=== PATIENT | male | born 1960 ===

== ENCOUNTER 2017-05-29 09:19 | Inpatient (IN) | payer OTHER ==
[2017-05-29 10:58] LABS: BASO % 0.7 % (0.0-2.0); EOS # 0.2 K/uL (0.0-0.7); EOS % 2.4 % (0.0-4.0); HEMOGLOBIN 12.1 g/dL (12.0-18.0); LYMPH # 0.7 K/uL (1.0-4.3); LYMPH % 11.1 % (20.0-40.0); MEAN CELL VOLUME 81.1 fL (80.0-94.0); MEAN CORPUSCULAR HEMOGLOBIN 26.7 pg (27.0-31.0); MONO # 0.4 K/uL (0.0-0.8); MONO % 6.8 % (0.0-10.0); NEUT # 5.1 K/uL (1.8-7.0); RBC 4.54 Mil/uL (4.40-5.90); RED CELL DISTRIBUTION WIDTH 18.3 % (11.5-14.5); WHITE BLOOD COUNT 6.4 K/uL (4.8-10.8)
[2017-05-29 11:24] LABS: ALB/GLOB RATIO 1.3 (1.0-2.1); ALBUMIN 4.5 g/dL (3.5-5.0); ALT/SGPT 42 U/L (21-72); AST/SGOT 78 U/L (17-59); BLOOD UREA NITROGEN 21 mg/dL (9-20); CALCIUM 9.7 mg/dl (8.6-10.4); GFR AFRICAN-AMERICAN > 60; GFR NON-AFRICAN AMERICAN > 60
[2017-05-29 11:37] LABS: SQUAMOUS EPITHIAL 4 /hpf (0-5); URINE BILIRUBIN NEGATIVE (NEGATIVE); URINE BLOOD NEGATIVE (NEGATIVE); URINE CLARITY Hazy (Clear); URINE COLOR Yellow (YELLOW); URINE GLUCOSE (UA) NORMAL (Normal); URINE LEUKOCYTE ESTERASE NEG Leu/uL (Negative); URINE NITRATE NEGATIVE (NEGATIVE); URINE PROTEIN 1+ mg/dL (NEGATIVE)
[2017-05-29 11:46] LABS: BARBITURATES, UR NEGATIVE (NEGATIVE); PHENCYCLIDINE, UR NEGATIVE (NEGATIVE)
[2017-05-29 12:13] LABS: BENZODIAZEPINES, UR POSITIVE (NEGATIVE); OPIATES, UR POSITIVE (NEGATIVE)
--- NOTE | 2017-05-29 12:43 | RAD ---
HISTORY: Detox/Psy COMPARISON: None available. TECHNIQUE: Chest, one view. FINDINGS: LUNGS: No focal consolidation. 7 mm left lower lobe nodular density. Please note that chest x-ray has limited sensitivity for the detection of pulmonary masses. PLEURA: No significant pleural effusion identified. No definite pneumothorax . CARDIOVASCULAR: Heart size appears top normal. OSSEOUS STRUCTURES: No acute osseous abnormality identified. VISUALIZED UPPER ABDOMEN: Unremarkable. OTHER FINDINGS: None. IMPRESSION: 7 mm left lower lobe nodular density. Recommend follow-up CT of the chest to exclude pulmonary nodule.
--- NOTE | 2017-05-29 14:18 | CP.PCM.HP ---
Addendum entered and electronically signed by Katelynn Moody 05/29/17 20:02 : Emergency Contact: Friend Mckinley Olson Original Note: <Katelynn Moody - Last Filed: 05/29/17 19:41> History of Present Illness - History of Present Illness History of Present Illness: CC: "I came to detox" HPI: 56 year old male with past medical history of Hepatitis C, HTN, Schizophrenia, alcohol abuse and heroine use. Patient states he came to the hospital to detox. He states his last use of heroin was 7AM today snorting as he does not have anymore veins to use it IV. He states his last drink was yesterday and he usually drinks about 1-2 pints of Bacardi and 10 cans of beer per day. He states if he does not drink he gets into fights with people and he has had seizures in the past due to withdrawal. He denies ever being intubated or hospitalized in the ICU. He states he is starting to feel shaky and have chills. He denies chest pain, palpitations, shortness of breath, diarrhea, constipation, nausea or vomiting. PMD: None Past Medical History: Hepatitis C, HTN, Schizophrenia Past Surgical History: denies Medications: Denies Allergies: NKDA Family History: denies Social History: Homeless; unemployed; Heroin 1 bundle IV previously 2 months ago and now currently snorts it; Alcohol 1-2 pints Bacardi per day and 10 cans of beer Present on Admission - Present on Admission Any Indicators Present on Admission: No Review of Systems - Constitutional Constitutional: Chills, Fever. absent: Headache - EENT Eyes: absent: Blurred Vision - Cardiovascular Cardiovascular: absent: Chest Pain, Dyspnea - Respiratory Respiratory: absent: Dyspnea - Gastrointestinal Gastrointestinal: absent: Constipation, Diarrhea, Nausea, Vomiting - Genitourinary Genitourinary: absent: Dysuria - Neurological Neurological: absent: Dizziness, Headaches - Endocrine Endocrine: absent: Fatigue, Palpitations Past Patient History - Past Social History Smoking Status: Heavy Smoker > 10 Cigarettes Daily - CARDIAC Hx Cardiac Disorders: Yes Hx Hypertension: Yes - PSYCHIATRIC Hx Psychophysiologic Disorder: Yes Hx Substance Use: Yes Other/Comment: Substance abuse Meds Allergies/Adverse Reactions: Allergies Allergy/AdvReac Type Severity Reaction Status Date / Time No Known Allergies Allergy Unverified 05/29/17 09:24 Physical Exam - Constitutional Appears: No Acute Distress, Older Than Stated Age - Head Exam Head Exam: NORMAL INSPECTION - Eye Exam Eye Exam: EOMI, Normal appearance - ENT Exam ENT Exam: Mucous Membranes Moist - Respiratory Exam Respiratory Exam: Clear to Auscultation Bilateral, NORMAL BREATHING PATTERN - Cardiovascular Exam Cardiovascular Exam: REGULAR RHYTHM, +S1, +S2 - GI/Abdominal Exam GI & Abdominal Exam: Normal Bowel Sounds, Soft. absent: Tenderness - Extremities Exam Extremities exam: Positive for: normal inspection - Neurological Exam Neurological exam: Alert, CN II-XII Intact, Oriented x3 - Expanded Neurological Exam Expanded Patient oriented to: person, place, time Sensory exam: Lower Extremity Light Touch: Normal, Upper Extremity Light Touch: Normal Neuro motor strength exam: Left Upper Extremity: 5, Right Upper Extremity: 5, Left Lower Extremity: 5, Right Lower Extremity: 5 Coma Scale Eye Opening: SPONTANEOUS Coma Scale Motor Response: OBEYS COMMANDS Coma Scale Verbal: Oriented Coma Scale Total: 15 - Psychiatric Exam Psychiatric exam: Normal Affect, Normal Mood - Skin Skin Exam: Normal Color, Warm Results - Vital Signs Recent Vital Signs: Last Vital Signs Temp 97.9 F 05/29/17 09:21 Pulse 79 05/29/17 13:49 Resp 20 05/29/17 13:49 BP 152/103 H 05/29/17 14:03 Pulse Ox 98 05/29/17 13:49 - Labs Result Diagrams: 05/29/17 10:52 05/29/17 10:52 Labs: Laboratory Results - last 24 hr 05/29/17 05/29/17 05/29/17 10:52 10:52 11:12 WBC 6.4 RBC 4.54 Hgb 12.1 Hct 36.8 MCV 81.1 MCH 26.7 L MCHC 33.0 RDW 18.3 H Plt Count 213 MPV 9.0 Neut % (Auto) 79.0 H Lymph % (Auto) 11.1 L [place] % (Auto) 6.8 Eos % (Auto) 2.4 Baso % (Auto) 0.7 Neut # (Auto) 5.1 Lymph # (Auto) 0.7 L [place] # (Auto) 0.4 Eos # (Auto) 0.2 Baso # (Auto) 0.0 Sodium 138 Potassium 4.5 Chloride 96 L Carbon Dioxide 28 Anion Gap 19 BUN 21 H Creatinine 1.2 Est GFR ( Amer) > 60 Est GFR (Non-Af Amer) > 60 Random Glucose 84 Calcium 9.7 Total Bilirubin 1.0 AST 78 H ALT 42 Alkaline Phosphatase 81 Total Protein 8.0 Albumin 4.5 Globulin 3.5 Albumin/Globulin Ratio 1.3 Urine Color Yellow Urine Clarity Hazy Urine pH 5.0 Ur Specific Colony 1.018 Urine Protein 1+ H Urine Glucose (UA) Normal Urine Ketones Trace Urine Blood Negative Urine Nitrate Negative Urine Bilirubin Negative Urine Urobilinogen 2.0 Ur Leukocyte Esterase Neg Urine WBC (Auto) 2 Urine RBC (Auto) 1 Ur Squamous Epith Cells 4 Urine Opiates Screen Urine Methadone Screen Ur Barbiturates Screen Ur Phencyclidine Scrn Ur Amphetamines Screen U Benzodiazepines Scrn U Oth Cocaine Metabols U Cannabinoids Screen Alcohol, Quantitative < 10 05/29/17 11:12 WBC RBC Hgb Hct MCV MCH MCHC RDW Plt Count MPV Neut % (Auto) Lymph % (Auto) [place] % (Auto) Eos % (Auto) Baso % (Auto) Neut # (Auto) Lymph # (Auto) [place] # (Auto) Eos # (Auto) Baso # (Auto) Sodium Potassium Chloride Carbon Dioxide Anion Gap BUN Creatinine Est GFR ( Amer) Est GFR (Non-Af Amer) Random Glucose Calcium Total Bilirubin AST ALT Alkaline Phosphatase Total Protein Albumin Globulin Albumin/Globulin Ratio Urine Color Urine Clarity Urine pH Ur Specific Colony Urine Protein Urine Glucose (UA) Urine Ketones Urine Blood Urine Nitrate Urine Bilirubin Urine Urobilinogen Ur Leukocyte Esterase Urine WBC (Auto) Urine RBC (Auto) Ur Squamous Epith Cells Urine Opiates Screen Positive H Urine Methadone Screen Negative Ur Barbiturates Screen Negative Ur Phencyclidine Scrn Negative Ur Amphetamines Screen Negative U Benzodiazepines Scrn Positive U Oth Cocaine Metabols Negative U Cannabinoids Screen Negative Alcohol, Quantitative Assessment & Plan - Assessment and Plan (Free Text) Assessment: 1.) Alcohol Abuse Psych Consult: Dr. Figueroa --> help appreciated Medications: * Ativan 2mg IV q4h * Librium 50mg po TID * B12 100mcg po daily * Folic Acid 1mg po daily * B1 100mg po daily * Banana Bag x1 bag 2.) Heroin Abuse Psych Consult: Dr. Figueroa --> help appreciated 3.) HTN 4.) Hx of Schzophrenia 5.) Hx of Hepatitis C - f/u hep panel - f/u HIV 6.) Prophylaxis - Pepcid 20mg po daily - Heparin sc - SCDs Case discussed with Dr. Khadra Moody PGY-1 <Aj Gaviria H - Last Filed: 05/30/17 07:38> Results - Vital Signs Recent Vital Signs: Last Vital Signs Temp 99.2 F 05/30/17 00:00 Pulse 67 05/30/17 00:00 Resp 20 05/30/17 00:00 BP 158/82 H 05/30/17 00:00 Pulse Ox 98 05/30/17 00:00 - Labs Result Diagrams: 05/30/17 07:12 05/29/17 10:52 Labs: Laboratory Results - last 24 hr 05/29/17 05/29/17 05/29/17 10:52 10:52 11:12 WBC 6.4 RBC 4.54 Hgb 12.1 Hct 36.8 MCV 81.1 MCH 26.7 L MCHC 33.0 RDW 18.3 H Plt Count 213 MPV 9.0 Neut % (Auto) 79.0 H Lymph % (Auto) 11.1 L [place] % (Auto) 6.8 Eos % (Auto) 2.4 Baso % (Auto) 0.7 Neut # (Auto) 5.1 Lymph # (Auto) 0.7 L [place] # (Auto) 0.4 Eos # (Auto) 0.2 Baso # (Auto) 0.0 Sodium 138 Potassium 4.5 Chloride 96 L Carbon Dioxide 28 Anion Gap 19 BUN 21 H Creatinine 1.2 Est GFR ( Amer) > 60 Est GFR (Non-Af Amer) > 60 Random Glucose 84 Calcium 9.7 Total Bilirubin 1.0 AST 78 H ALT 42 Alkaline Phosphatase 81 Total Protein 8.0 Albumin 4.5 Globulin 3.5 Albumin/Globulin Ratio 1.3 Urine Color Yellow Urine Clarity Hazy Urine pH 5.0 Ur Specific Colony 1.018 Urine Protein 1+ H Urine Glucose (UA) Normal Urine Ketones Trace Urine Blood Negative Urine Nitrate Negative Urine Bilirubin Negative Urine Urobilinogen 2.0 Ur Leukocyte Esterase Neg Urine WBC (Auto) 2 Urine RBC (Auto) 1 Ur Squamous Epith Cells 4 Urine Opiates Screen Urine Methadone Screen Ur Barbiturates Screen Ur Phencyclidine Scrn Ur Amphetamines Screen U Benzodiazepines Scrn U Oth Cocaine Metabols U Cannabinoids Screen Alcohol, Quantitative < 10 Hepatitis A IgM Ab Hep Bs Antigen Hep B Core IgM Ab Hepatitis C Antibody HIV 1&2 Antibody Screen 05/29/17 05/29/17 05/29/17 11:12 14:41 17:30 WBC RBC Hgb Hct MCV MCH MCHC RDW Plt Count MPV Neut % (Auto) Lymph % (Auto) [place] % (Auto) Eos % (Auto) Baso % (Auto) Neut # (Auto) Lymph # (Auto) [place] # (Auto) Eos # (Auto) Baso # (Auto) Sodium Potassium Chloride Carbon Dioxide Anion Gap BUN Creatinine Est GFR ( Amer) Est GFR (Non-Af Amer) Random Glucose Calcium Total Bilirubin AST ALT Alkaline Phosphatase Total Protein Albumin Globulin Albumin/Globulin Ratio Urine Color Urine Clarity Urine pH Ur Specific Colony Urine Protein Urine Glucose (UA) Urine Ketones Urine Blood Urine Nitrate Urine Bilirubin Urine Urobilinogen Ur Leukocyte Esterase Urine WBC (Auto) Urine RBC (Auto) Ur Squamous Epith Cells Urine Opiates Screen Positive H Urine Methadone Screen Negative Ur Barbiturates Screen Negative Ur Phencyclidine Scrn Negative Ur Amphetamines Screen Negative U Benzodiazepines Scrn Positive U Oth Cocaine Metabols Negative U Cannabinoids Screen Negative Alcohol, Quantitative Hepatitis A IgM Ab Negative Hep Bs Antigen Negative Hep B Core IgM Ab Negative Hepatitis C Antibody Reactive HIV 1&2 Antibody Screen Negative 05/30/17 07:12 WBC 5.2 RBC 4.48 Hgb 11.9 L Hct 36.1 MCV 80.5 MCH 26.5 L MCHC 32.9 L RDW 17.6 H Plt Count 177 MPV 9.0 Neut % (Auto) 62.8 Lymph % (Auto) 16.5 L [place] % (Auto) 10.1 H Eos % (Auto) 9.2 H Baso % (Auto) 1.4 Neut # (Auto) 3.2 Lymph # (Auto) 0.9 L [place] # (Auto) 0.5 Eos # (Auto) 0.5 Baso # (Auto) 0.1 Sodium Potassium Chloride Carbon Dioxide Anion Gap BUN Creatinine Est GFR ( Amer) Est GFR (Non-Af Amer) Random Glucose Calcium Total Bilirubin AST ALT Alkaline Phosphatase Total Protein Albumin Globulin Albumin/Globulin Ratio Urine Color Urine Clarity Urine pH Ur Specific Colony Urine Protein Urine Glucose (UA) Urine Ketones Urine Blood Urine Nitrate Urine Bilirubin Urine Urobilinogen Ur Leukocyte Esterase Urine WBC (Auto) Urine RBC (Auto) Ur Squamous Epith Cells Urine Opiates Screen Urine Methadone Screen Ur Barbiturates Screen Ur Phencyclidine Scrn Ur Amphetamines Screen U Benzodiazepines Scrn U Oth Cocaine Metabols U Cannabinoids Screen Alcohol, Quantitative Hepatitis A IgM Ab Hep Bs Antigen Hep B Core IgM Ab Hepatitis C Antibody HIV 1&2 Antibody Screen Attending/Attestation - Attestation I have personally seen and examined this patient.: Yes I have fully participated in the care of the patient.: Yes I have reviewed all pertinent clinical information: Yes Notes (Text): 05/30/17 07:38 Medical attending: Patient was seen and examined by me, I saw the patient with the certified ophthalmic medical technician in the emergency room. I reviewed the above note and agree with the above note by the resident. This is a patient with an extensive history of alcohol and drug abuse. As documented above the resident note the patient explains to us that he takes at least 2 bottles Picardi a day as well as 10 - 12 ounce beers a day. He explains to us that if he does not drink that he has a lot of anxiety, stress, and tremors. He tells us he has to drink just to feel normal. His blood pressure was too high to go to the detox floor, in the emergency room they saw numbers for systolic greater than 200. In the emergency room he had already received IV Ativan as well as by mouth clonidine. In the ER he was mostly somnolent he was. Was not in any acute distress. He was not having tremors at that time. However considering his extensive drug and alcohol history regular give him Ativan 2 mg [id number] as well as Librium 50 by mouth 3 times a day. As the days progressed and we reassessed the patient we could decrease this as he tolerates. In the meantime can have to evaluate his blood pressure, monitor him for delirium tremors, as well as electrolyte deficiencies Aj Gaviria
--- NOTE | 2017-05-29 14:36 | C.PDOC ---
History Of Present Illness 56 year old male presents to the ED requesting alcohol and heroin detox. Patient states he uses heroin nasally and states his last use was yesterday. Patient reports history of HTN and schizophrenia and states he has been noncompliant with medications for both. Patient denies auditory/visual hallucinations, suicidal/homicidal ideation, headache, chest pain, shortness of breath, blurry/double vision. Chief Complaint (Nursing): Substance Abuse History Per: Patient History/Exam Limitations: no limitations Onset/Duration Of Symptoms: Hrs Current Symptoms Are (Timing): Still Present Suicide/Self Injury Attempted (Context): None Modifying Factor(s): Alcohol, Other (heroin) Associated Symptoms: denies: Paranoia, Suicidal Thoughts, Suicidal Plan Involuntary Hold By: None Recent travel outside of the [place]: No Additional History Per: Patient Past Medical History Reviewed: Historical Data, Nursing Documentation, Vital Signs Vital Signs: Last Vital Signs Temp 98.6 F 05/29/17 18:03 Pulse 62 05/29/17 18:03 Resp 16 05/29/17 18:03 BP 130/81 05/29/17 18:03 Pulse Ox 99 05/29/17 18:03 - Medical History PMH: HTN Surgical History: No Surg Hx Family History: States: Unknown Family Hx - Social History Hx Alcohol Use: Yes Hx Substance Use: Yes - Immunization History Hx Tetanus Toxoid Vaccination: No Hx Influenza Vaccination: No Hx Pneumococcal Vaccination: No Review Of Systems Eyes: Negative for: Vision Change Cardiovascular: Negative for: Chest Pain Respiratory: Negative for: Shortness of Breath Neurological: Negative for: Headache Psych: Positive for: Other (alcohol and heroin detox ). Negative for: Suicidal ideation Physical Exam - Physical Exam Appears: Non-toxic, No Acute Distress Skin: Normal Color, Warm, Dry Head: Atraumatic, Normacephalic Eye(s): bilateral: Normal Inspection Oral Mucosa: Moist Tongue: Other (tongue fasciculations noted ) Neck: Supple Chest: Symmetrical, No Deformity, No Tenderness Cardiovascular: Rhythm Regular, No Murmur Respiratory: Normal Breath Sounds, No Rales, No Rhonchi, No Wheezing Extremity: Normal ROM, Capillary Refill (less than 2 seconds ) Neurological/Psych: Normal Speech, Normal Cognition, Other (hand tremors noted ) Gait: Steady ED Course And Treatment - Laboratory Results Result Diagrams: 05/29/17 10:52 05/29/17 10:52 O2 Sat by Pulse Oximetry: 98 (on RA) Pulse Ox Interpretation: Normal - Other Rad CXR X-Ray: Interpreted by Me, Viewed By Me, Read By Radiologist Interpretation: HISTORY: Detox/Psy. COMPARISON: None available. TECHNIQUE: Chest, one view. FINDINGS: LUNGS: No focal consolidation. 7 mm left lower lobe nodular density. Please note that chest x-ray has limited sensitivity for the detection of pulmonary masses. PLEURA: No significant pleural effusion identified. No definite pneumothorax . CARDIOVASCULAR: Heart size appears top normal. OSSEOUS STRUCTURES: No acute osseous abnormality identified. VISUALIZED UPPER ABDOMEN: Unremarkable. OTHER FINDINGS: None. IMPRESSION: 7 mm left lower lobe nodular density. Recommend follow-up CT of the chest to exclude pulmonary nodule. Medical Decision Making Medical Decision Making: Progress: Bloodwork, UA, CXR ordered and reviewed. Catapres PO administered. Case discussed with Dr. Gaviria, who agrees upon admission. Disposition - Disposition Disposition Time: 11:30 Condition: STABLE - Clinical Impression Clinical Impression: Drug dependence, Hypertension, Drug abuse - Scribe Statement The provider has reviewed the documentation as recorded by the Scribe (Margareth Goode) Provider Attestation: All medical record entries made by the Scribe were at my direction and personally dictated by me. I have reviewed the chart and agree that the record accurately reflects my personal performance of the history, physical exam, medical decision making, and the department course for this patient. I have also personally directed, reviewed, and agree with the discharge instructions and disposition.
[2017-05-29 16:00] LABS: HEPATITIS B SURFACE AG Negative (NEGATIVE)
[2017-05-29 16:06] LABS: HEPATITIS A IGM NEGATIVE (NEGATIVE); HEPATITIS B CORE AB NEGATIVE (NEGATIVE)
[2017-05-29] MEDS ORDERED: Multivitamin (MVI) 10 ML, Thiamine 100 MG, Folic Acid 1 MG in Sodium Chloride 0.9% 1,00... IV ONE ×2 (18:00→18:13)
[2017-05-29 22:26] LABS: HEPATITIS C ANTIBODY REACTIVE (NEGATIVE)
[2017-05-29 23:06] VITALS: RESP 20
[2017-05-30 07:27] LABS: BASO # 0.1 K/uL (0.0-0.2); BASO % 1.4 % (0.0-2.0); EOS # 0.5 K/uL (0.0-0.7); EOS % 9.2 % (0.0-4.0); HEMOGLOBIN 11.9 g/dL (12.0-18.0); LYMPH # 0.9 K/uL (1.0-4.3); LYMPH % 16.5 % (20.0-40.0); MEAN CELL VOLUME 80.5 fL (80.0-94.0); MEAN CORPUSCULAR HEMOGLOBIN 26.5 pg (27.0-31.0); MEAN CORPUSCULAR HGB CONC 32.9 g/dL (33.0-37.0); MONO # 0.5 K/uL (0.0-0.8); MONO % 10.1 % (0.0-10.0); NEUT # 3.2 K/uL (1.8-7.0); NEUT % 62.8 % (50.0-75.0); RBC 4.48 Mil/uL (4.40-5.90); RED CELL DISTRIBUTION WIDTH 17.6 % (11.5-14.5); WHITE BLOOD COUNT 5.2 K/uL (4.8-10.8)
[2017-05-30 07:53] VITALS: O2SAT 97
[2017-05-30 07:54] LABS: ALB/GLOB RATIO 1.2 (1.0-2.1); ALBUMIN 3.6 g/dL (3.5-5.0); ALT/SGPT 35 U/L (21-72); AST/SGOT 49 U/L (17-59); BLOOD UREA NITROGEN 26 mg/dL (9-20); CALCIUM 9.3 mg/dl (8.6-10.4); GFR AFRICAN-AMERICAN > 60; GFR NON-AFRICAN AMERICAN 57; MAGNESIUM 1.7 mg/dL (1.6-2.3)
--- NOTE | 2017-05-30 08:55 | CP.PCM.PN ---
<Diogo Glynn - Last Filed: 05/30/17 18:32> Subjective - Date & Time of Evaluation Date of Evaluation: 05/30/17 Time of Evaluation: 10:30 - Subjective Subjective: Medicine progress note for Dr. Gaviria Patient seen and examined. Patient reports feeling tired this morning. Patient admits some tremors and abdominal pain from his withdrawal. Objective - Vital Signs/Intake and Output Vital Signs (last 24 hours): Temp Pulse Resp BP Pulse Ox 98.5 F 77 20 156/89 H 97 05/30/17 07:46 05/30/17 07:46 05/30/17 07:46 05/30/17 07:46 05/30/17 07:46 Intake and Output: 05/30/17 05/30/17 06:59 18:59 Intake Total 500 Balance 500 - Medications Medications: Current Medications Chlordiazepoxide (Librium) 50 mg PO TID [facility] Last Admin: 05/29/17 15:02 Dose: 50 mg Cyanocobalamin (Vitamin B12 100 Mcg Tab) 100 mcg PO DAILY [facility] Famotidine (Pepcid) 20 mg PO DAILY [facility] Folic Acid (Folic Acid) 1 mg PO DAILY [facility] Heparin Sodium (Porcine) (Heparin) 5,000 units SC Q8 [facility] Last Admin: 05/30/17 05:43 Dose: 5,000 units Multivitamins/Vitamin C 10 ml/Thiamine HCl 100 mg/ Folic Acid 1 mg/ Sodium Chloride 1,011.2 mls @ 50 mls/hr IV .[id number] ONE Stop: 05/30/17 14:13 Last Admin: 05/29/17 18:03 Dose: 50 mls/hr Lorazepam (Ativan) 2 mg IVP Q4H [facility] Last Admin: 05/30/17 05:42 Dose: 2 mg Thiamine HCl (Vitamin B1 Tab) 100 mg PO DAILY [facility] - Labs Labs: 05/30/17 07:12 05/30/17 07:12 - Additional Findings Additional findings: - Constitutional Appears: No Acute Distress, Older Than Stated Age - Head Exam Head Exam: NORMAL INSPECTION - Eye Exam Eye Exam: EOMI, Normal appearance - ENT Exam ENT Exam: Mucous Membranes Moist - Respiratory Exam Respiratory Exam: Clear to Auscultation Bilateral, NORMAL BREATHING PATTERN - Cardiovascular Exam Cardiovascular Exam: REGULAR RHYTHM, +S1, +S2 - GI/Abdominal Exam GI & Abdominal Exam: Normal Bowel Sounds, Soft. absent: Tenderness - Extremities Exam Extremities exam: Positive for: normal inspection - Neurological Exam Neurological exam: Alert, CN II-XII Intact, Oriented x3 - Psychiatric Exam Psychiatric exam: Normal Affect, Normal Mood - Skin Skin Exam: Normal Color, Warm Assessment and Plan - Assessment and Plan (Free Text) Plan: 1.) Alcohol Abuse Psych Consult: Dr. Figueroa --> help appreciated Medications: * Ativan 1mg IV q4h * Librium 50mg po TID * B12 100mcg po daily * Folic Acid 1mg po daily * B1 100mg po daily * Banana Bag x1 bag * After banana bag, started on NS @50 cc/hr 2.) Heroin Abuse Psych Consult: Dr. Figueroa --> help appreciated * Methadone taper 3.) HTN * likely from withdrawal and much better controlled with Ativan and Librium on board 4.) Hx of Schzophrenia 5.) Hx of Hepatitis C - Reactive Hepatitis C antibody - HIV screen negative 6.) Prophylaxis - Pepcid 20mg po daily - Heparin sc - SCDs Case DW Dr. Khadra Glynn PGY-1 <Aj Gaviria - Last Filed: 05/30/17 18:45> Objective - Vital Signs/Intake and Output Vital Signs (last 24 hours): Temp Pulse Resp BP Pulse Ox 98.1 F 64 20 132/75 97 05/30/17 16:00 05/30/17 16:00 05/30/17 16:00 05/30/17 16:00 05/30/17 16:00 Intake and Output: 05/30/17 05/30/17 06:59 18:59 Intake Total 500 900 Balance 500 900 - Medications Medications: Current Medications Al Hydrox/Mg Hydrox/Simethicone (Maalox 30 Ml) 30 ml PO TID PRN PRN Reason: Indigestion / Heartburn Chlordiazepoxide (Librium) 50 mg PO TID [facility] Last Admin: 05/30/17 15:49 Dose: 50 mg Cyanocobalamin (Vitamin B12 100 Mcg Tab) 100 mcg PO DAILY [facility] Last Admin: 05/30/17 11:38 Dose: 100 mcg Famotidine (Pepcid) 20 mg PO DAILY [facility] Last Admin: 05/30/17 11:38 Dose: 20 mg Folic Acid (Folic Acid) 1 mg PO DAILY [facility] Last Admin: 05/30/17 11:38 Dose: 1 mg Heparin Sodium (Porcine) (Heparin) 5,000 units SC Q8 [facility] Last Admin: 05/30/17 15:03 Dose: 5,000 units Sodium Chloride (Sodium Chloride 0.9%) 1,000 mls @ 50 mls/hr IV .Q20H [facility] Loperamide HCl (Imodium) 2 mg PO Q8 PRN PRN Reason: Diarrhea Lorazepam (Ativan) 1 mg IVP Q4H [facility] Last Admin: 05/30/17 15:25 Dose: 1 mg Methadone HCl (Methadone) 0 mg PO DAILY [facility] PRN Reason: Taper Stop: 06/03/17 09:59 Ondansetron HCl (Zofran Tab) 4 mg PO Q8 PRN PRN Reason: Nausea/Vomiting Thiamine HCl (Vitamin B1 Tab) 100 mg PO DAILY [facility] Last Admin: 05/30/17 11:42 Dose: 100 mg - Labs Labs: 05/30/17 07:12 05/30/17 07:12 Attending/Attestation - Attestation I have personally seen and examined this patient.: Yes I have fully participated in the care of the patient.: Yes I have reviewed all pertinent clinical information, including history, physical exam and plan: Yes Notes (Text): 05/30/17 18:45 Medical attending: Patient was seen and examined by me, I saw the patient with clinical medical transcriptionist. I reviewed the above note by clinical medical transcriptionist and agree The patient did not have any events overnight. When we saw him in the morning he was somewhat somnolent likely from the large amounts of Ativan we are giving periods order to decrease the Ativan to just 1 mg IV every 4 hours now. We'll maintain the Librium just as it is. Reviewed and continue to watch the blood pressure as well We'll continue with a low dose of normal saline We'll get seen tomorrow, and we'll see if we could decrease the Ativan
[2017-05-30] MEDS ORDERED: Aluminum Hydroxide/Magnesium Hydroxide Susp (30 mL) PO PRN (11:48)
--- NOTE | 2017-05-30 11:51 | PCM.PSYCH ---
Initial Psychiatric Evaluation - Initial Psychiatric Evaluation Type of Admission: Voluntary Legal Status: Capacity Chief Complaint (in patient's own words): "I'm feeling bad, I want to get off heroin and alcohol." History of Present Illness and Precipitating Events: HPI: Patient is a 56 year old [place] male, single, homeless, unemployed. He stays in the [facility]. Patient is a poor historian due to impaired mental status- he is oriented to person but not to place ("[place] know what city we' re [place], [place]") or time ("1999"). He was brought to the ED by Ivette. He requested help with etoh and heroin detox. Pt states he drinks 2 pints of rum daily, snorts and shoots 10 bags of heroin daily, smokes cigarettes 1 ppd. He started using heroin 17 years ago. Last use 05/28/17. He has a history of alcoholic seizures. He says is in pain, alternating chills/sweats. He is experiencing tremors. He has no family in the [facility], his family is [place] and he does not speak with them , including his 2 children (35, 36 years old). Patient states he has heard voices and had visual hallucinations in the past, but denies both at the current time. Patient denies homicidal ideation. Patient denies current suicidal ideation, says he has thought about it in the past. Patient is disorganized, disheveled. Detox: denies, requesting Rehab: denies, requesting (note- pt is a poor historian, also states he was brought here by Ivette). PMHx: alcoholic seizures, HTN. Legal: denies Current Medications: Active Medications Generic Name Dose Route Start Last Admin Trade Name Freq PRN Reason Stop Dose Admin Al Hydrox/Mg Hydrox/Simethicone 30 ml 05/30/17 11:48 Maalox 30 Ml PO TID PRN Indigestion / Heartburn Chlordiazepoxide 50 mg 05/29/17 14:12 05/30/17 11:38 Librium PO 50 mg TID RAYRAY Administration Cyanocobalamin 100 mcg 05/30/17 10:00 05/30/17 11:38 Vitamin B12 100 Mcg Tab PO 100 mcg DAILY RAYRAY Administration Famotidine 20 mg 05/30/17 10:00 05/30/17 11:38 Pepcid PO 20 mg DAILY RAYRAY Administration Folic Acid 1 mg 05/30/17 10:00 05/30/17 11:38 Folic Acid PO 1 mg DAILY RAYRAY Administration Heparin Sodium (Porcine) 5,000 units 05/30/17 06:00 05/30/17 05:43 Heparin SC 5,000 units Q8 RAYRAY Administration Multivitamins/Vitamin C 10 ml/ 1,011.2 mls @ 50 mls/hr 05/29/17 18:00 18:03 Thiamine HCl 100 mg/ Folic IV 05/30/17 14:13 50 mls/hr Acid 1 mg/ Sodium Chloride .[id number] ONE Administration Loperamide HCl 2 mg 05/30/17 11:48 Imodium PO Q8 PRN Diarrhea Lorazepam 1 mg 05/30/17 12:00 Ativan IVP Q4H RAYRAY Methadone HCl 20 mg 05/30/17 11:48 Methadone PO 05/30/17 11:49 ONCE ONE Methadone HCl 0 mg 05/31/17 10:00 Methadone PO 06/03/17 09:59 DAILY RAYRAY Taper Ondansetron HCl 4 mg 05/30/17 11:48 Zofran Tab PO Q8 PRN Nausea/Vomiting Thiamine HCl 100 mg 05/30/17 10:00 05/30/17 11:42 Vitamin B1 Tab PO 100 mg DAILY RAYRAY Administration Past Psychiatric History - Past Psychiatric History Pertinent Medical Hx (Current Medical&Sleep Prob, Allergies): Allergies Allergy/AdvReac Type Severity Reaction Status Date / Time No Known Allergies Allergy Unverified 05/29/17 09:24 No Known Home Med 05/29/17 Review of Systems - Review of Systems Systems not reviewed;Unavailable: Altered Mental Status - Neurological Neurological: Tremor - Psychiatric Psychiatric: Difficulty Concentrating, Irritability. absent: Suicidal Ideation Mental Status Examination - Personal Presentation Personal Presentation: Looks older than stated age - Affect Affect: Constricted, Blunted, Depressed - Motor Activity Motor Activity: Psychomotor Retardation - Reliability in Providing Information Reliability in Providing Information: Poor, due to alteration in thoughts - Speech Speech: Disorganized, Incoherent - Mood Mood: Depressed - Formal Thought Process Formal Thought Process: Hallucinations - Hallucinations/Delusions Hallucinations: Visual, Auditory - Cognitive Functions Orientation: Person Sensorium: Drowsy Attention/Concentration: Easily distracted Judgement: Imparied, as evidence by: Poor judgement Memory: Recent impaired, as evidence by: Inability to recall events of the day - Risk Risk: Withdrawal, Diminished functioning - Limitations Limitations: Other (Homeless) DSM 5 DX - DSM 5 DSM 5 Diagnosis: Opioid use disorder severe Opioid withdrawal Alcohol use disorder severe Alcohol withdrawal KATE - Recommended/Plan of Treatment Treatment Recommendations and Plan of Treatment: Opioid use disorder severe Opioid withdrawal CBT Psychoeducation Supportive therapy, individual therapy Use OH for abstinence Methadone taper Alcohol use disorder severe CBT Psychoeducation Supportive therapy, individual therapy Use OH for abstinence Thiamine 100 mg PO daily Folic acid 1 mg PO daily Alcohol withdrawal CBT Psychoeducation Supportive therapy, individual therapy Librium taper Ativan 1 mg IVP Q4 Generalized Anxiety Disorder CBT Psychoeducation Supportive therapy, group therapy, individual therapy
[2017-05-30 17:30] VITALS: BP 132/75; PULSE 64; TEMP 98.1
[2017-05-30] MEDS ORDERED: Sodium Chloride 0.9% 1,000 ML IV SCH (18:30)
--- NOTE | 2017-05-31 07:01 | CP.PCM.DIS ---
<Abhishek Gonzales - Last Filed: 05/31/17 07:36> Provider - Provider Date of Admission: 05/29/17 13:06 Attending physician: Aj Gaviria DO Time Spent in preparation of Discharge (in minutes): 45 Hospital Course - Lab Results Lab Results: Most Recent Lab Values WBC 5.2 K/uL (4.8-10.8) 05/30/17 07:12 RBC 4.48 Mil/uL (4.40-5.90) 05/30/17 07:12 Hgb 11.9 g/dL (12.0-18.0) L 05/30/17 07:12 Hct 36.1 % (35.0-51.0) 05/30/17 07:12 MCV 80.5 fL (80.0-94.0) 05/30/17 07:12 MCH 26.5 pg (27.0-31.0) L 05/30/17 07:12 MCHC 32.9 g/dL (33.0-37.0) L 05/30/17 07:12 RDW 17.6 % (11.5-14.5) H 05/30/17 07:12 Plt Count 177 K/uL (130-400) 05/30/17 07:12 MPV 9.0 fL (7.2-11.7) 05/30/17 07:12 Neut % (Auto) 62.8 % (50.0-75.0) 05/30/17 07:12 Lymph % (Auto) 16.5 % (20.0-40.0) L 05/30/17 07:12 Cascade % (Auto) 10.1 % (0.0-10.0) H 05/30/17 07:12 Eos % (Auto) 9.2 % (0.0-4.0) H 05/30/17 07:12 Baso % (Auto) 1.4 % (0.0-2.0) 05/30/17 07:12 Neut # (Auto) 3.2 K/uL (1.8-7.0) 05/30/17 07:12 Lymph # (Auto) 0.9 K/uL (1.0-4.3) L 05/30/17 07:12 Cascade # (Auto) 0.5 K/uL (0.0-0.8) 05/30/17 07:12 Eos # (Auto) 0.5 K/uL (0.0-0.7) 05/30/17 07:12 Baso # (Auto) 0.1 K/uL (0.0-0.2) 05/30/17 07:12 Sodium 134 mmol/L (132-148) 05/30/17 07:12 Potassium 4.0 mmol/L (3.6-5.2) 05/30/17 07:12 Chloride 98 mmol/L (98-107) 05/30/17 07:12 Carbon Dioxide 28 mmol/L (22-30) 05/30/17 07:12 Anion Gap 12 (10-20) 05/30/17 07:12 BUN 26 mg/dL (9-20) H 05/30/17 07:12 Creatinine 1.3 mg/dL (0.8-1.5) 05/30/17 07:12 Est GFR ( Amer) > 60 05/30/17 07:12 Est GFR (Non-Af Amer) 57 05/30/17 07:12 Random Glucose 96 mg/dL (75-110) 05/30/17 07:12 Calcium 9.3 mg/dl (8.6-10.4) 05/30/17 07:12 Phosphorus 3.0 mg/dL (2.5-4.5) 05/30/17 07:12 Magnesium 1.7 mg/dL (1.6-2.3) 05/30/17 07:12 Total Bilirubin 0.7 mg/dL (0.2-1.3) 05/30/17 07:12 AST 49 U/L (17-59) 05/30/17 07:12 ALT 35 U/L (21-72) 05/30/17 07:12 Alkaline Phosphatase 67 U/L (38-126) 05/30/17 07:12 Total Protein 6.5 g/dL (6.3-8.3) 05/30/17 07:12 Albumin 3.6 g/dL (3.5-5.0) 05/30/17 07:12 Globulin 2.9 gm/dL (2.2-3.9) 05/30/17 07:12 Albumin/Globulin Ratio 1.2 (1.0-2.1) 05/30/17 07:12 Urine Color Yellow (YELLOW) 05/29/17 11:12 Urine Clarity Hazy (Clear) 05/29/17 11:12 Urine pH 5.0 (5.0-8.0) 05/29/17 11:12 Ur Specific Mercer 1.018 (1.003-1.030) 05/29/17 11:12 Urine Protein 1+ mg/dL (NEGATIVE) H 05/29/17 11:12 Urine Glucose (UA) Normal mg/dL (Normal) 05/29/17 11:12 Urine Ketones Trace mg/dL (NEGATIVE) 05/29/17 11:12 Urine Blood Negative (NEGATIVE) 05/29/17 11:12 Urine Nitrate Negative (NEGATIVE) 05/29/17 11:12 Urine Bilirubin Negative (NEGATIVE) 05/29/17 11:12 Urine Urobilinogen 2.0 mg/dL (0.2-1.0) 05/29/17 11:12 Ur Leukocyte Esterase Neg Debra/uL (Negative) 05/29/17 11:12 Urine WBC (Auto) 2 /hpf (0-5) 05/29/17 11:12 Urine RBC (Auto) 1 /hpf (0-3) 05/29/17 11:12 Ur Squamous Epith Cells 4 /hpf (0-5) 05/29/17 11:12 Urine Opiates Screen Positive (NEGATIVE) H 05/29/17 11:12 Urine Methadone Screen Negative (NEGATIVE) 05/29/17 11:12 Ur Barbiturates Screen Negative (NEGATIVE) 05/29/17 11:12 Ur Phencyclidine Scrn Negative (NEGATIVE) 05/29/17 11:12 Ur Amphetamines Screen Negative (NEGATIVE) 05/29/17 11:12 U Benzodiazepines Scrn Positive (NEGATIVE) 05/29/17 11:12 U Oth Cocaine Metabols Negative (NEGATIVE) 05/29/17 11:12 U Cannabinoids Screen Negative (NEGATIVE) 05/29/17 11:12 Alcohol, Quantitative < 10 mg/dl (0-10) 05/29/17 10:52 Hepatitis A IgM Ab Negative (NEGATIVE) 05/29/17 14:41 Hep Bs Antigen Negative (NEGATIVE) 05/29/17 14:41 Hep B Core IgM Ab Negative (NEGATIVE) 05/29/17 14:41 Hepatitis C Antibody Reactive (NEGATIVE) 05/29/17 14:41 HIV 1&2 Antibody Screen Negative (NEGATIVE) 05/29/17 17:30 - Hospital Course Hospital Course: Discharge Summary PMD:Denies Consults: Psychiatry: Jemal PRINCIPAL DISCHARGE DIAGNOSES: Hepatitis C Htn Schizophrenia HISTORY OF PRESENT ILLNESS: 56 year old male with past medical history of Hepatitis C, HTN, Schizophrenia, alcohol abuse and heroine use. Patient states he came to the hospital to detox. He states his last use of heroin was 7AM today snorting as he does not have anymore veins to use it IV. He states his last drink was yesterday and he usually drinks about 1-2 pints of Bacardi and 10 cans of beer per day. He states if he does not drink he gets into fights with people and he has had seizures in the past due to withdrawal. He denies ever being intubated or hospitalized in the ICU. He states he is starting to feel shaky and have chills. He denies chest pain, palpitations, shortness of breath, diarrhea, constipation, nausea or vomiting. PMD: None Past Medical History: Hepatitis C, HTN, Schizophrenia Past Surgical History: denies Medications: Denies Allergies: NKDA Family History: denies Social History: Homeless; unemployed; Heroin 1 bundle IV previously 2 months ago and now currently snorts it; Alcohol 1-2 pints Bacardi per day and 10 cans of beer SUMMARY OF COURSE: Junior Jackson is a 56 year old male that was admitted to [facility] from 05/29/17-05/30/17. While admitted the patient had blood drawn. He was seen by Psychiatry during his stay. Patient was started on Methadone and IV fluids. The next day the patient asked to leave AMA and that he didn't want to stay any longer. The patient was alert and orientated times three. Patient denied at SI, HI, , as well. The patient signed out AMA. Imaging: CXR: 7MM left lower lobe nodule. Discharge Exam - Head Exam Head Exam: NORMAL INSPECTION - Eye Exam Eye Exam: EOMI, Normal appearance, PERRL. absent: Periorbital tenderness Pupil Exam: NORMAL ACCOMODATION, PERRL. absent: Irregular, Unequal - ENT Exam ENT Exam: Mucous Membranes Moist, Normal Exam, Normal Oropharynx - Neck Exam Neck exam: Normal Inspection - Respiratory Exam Respiratory Exam: Clear to PA & Lateral, NORMAL BREATHING PATTERN, UNREMARKABLE. absent: Decreased Breath Sounds, Rales, Rhonchi - Cardiovascular Exam Cardiovascular Exam: REGULAR RHYTHM, RRR, +S1, +S2. absent: Gallop, Rubs - GI/Abdominal Exam GI & Abdominal Exam: Normal Bowel Sounds, Unremarkable. absent: Hypoactive Bowel Sounds, Organomegaly - Extremities Exam Extremities exam: full ROM - Back Exam Back exam: NORMAL INSPECTION. absent: CVA tenderness (L), CVA tenderness (R), paraspinal tenderness - Neurological Exam Neurological exam: Alert, CN II-XII Intact, Oriented x3 - Psychiatric Exam Psychiatric exam: Normal Affect, Normal Mood - Skin Skin Exam: Dry, Intact Discharge Plan - Follow Up Plan Condition: STABLE Disposition: AGAINST MEDICAL ADVICE <Aj Gaviria - Last Filed: 05/31/17 15:15> Provider - Provider Date of Admission: 05/29/17 13:06 Attending physician: Aj Gaviria DO Hospital Course - Lab Results Lab Results: Most Recent Lab Values WBC 5.2 K/uL (4.8-10.8) 05/30/17 07:12 RBC 4.48 Mil/uL (4.40-5.90) 05/30/17 07:12 Hgb 11.9 g/dL (12.0-18.0) L 05/30/17 07:12 Hct 36.1 % (35.0-51.0) 05/30/17 07:12 MCV 80.5 fL (80.0-94.0) 05/30/17 07:12 MCH 26.5 pg (27.0-31.0) L 05/30/17 07:12 MCHC 32.9 g/dL (33.0-37.0) L 05/30/17 07:12 RDW 17.6 % (11.5-14.5) H 05/30/17 07:12 Plt Count 177 K/uL (130-400) 05/30/17 07:12 MPV 9.0 fL (7.2-11.7) 05/30/17 07:12 Neut % (Auto) 62.8 % (50.0-75.0) 05/30/17 07:12 Lymph % (Auto) 16.5 % (20.0-40.0) L 05/30/17 07:12 Cascade % (Auto) 10.1 % (0.0-10.0) H 05/30/17 07:12 Eos % (Auto) 9.2 % (0.0-4.0) H 05/30/17 07:12 Baso % (Auto) 1.4 % (0.0-2.0) 05/30/17 07:12 Neut # (Auto) 3.2 K/uL (1.8-7.0) 05/30/17 07:12 Lymph # (Auto) 0.9 K/uL (1.0-4.3) L 05/30/17 07:12 Cascade # (Auto) 0.5 K/uL (0.0-0.8) 05/30/17 07:12 Eos # (Auto) 0.5 K/uL (0.0-0.7) 05/30/17 07:12 Baso # (Auto) 0.1 K/uL (0.0-0.2) 05/30/17 07:12 Sodium 134 mmol/L (132-148) 05/30/17 07:12 Potassium 4.0 mmol/L (3.6-5.2) 05/30/17 07:12 Chloride 98 mmol/L (98-107) 05/30/17 07:12 Carbon Dioxide 28 mmol/L (22-30) 05/30/17 07:12 Anion Gap 12 (10-20) 05/30/17 07:12 BUN 26 mg/dL (9-20) H 05/30/17 07:12 Creatinine 1.3 mg/dL (0.8-1.5) 05/30/17 07:12 Est GFR ( Amer) > 60 05/30/17 07:12 Est GFR (Non-Af Amer) 57 05/30/17 07:12 Random Glucose 96 mg/dL (75-110) 05/30/17 07:12 Calcium 9.3 mg/dl (8.6-10.4) 05/30/17 07:12 Phosphorus 3.0 mg/dL (2.5-4.5) 05/30/17 07:12 Magnesium 1.7 mg/dL (1.6-2.3) 05/30/17 07:12 Total Bilirubin 0.7 mg/dL (0.2-1.3) 05/30/17 07:12 AST 49 U/L (17-59) 05/30/17 07:12 ALT 35 U/L (21-72) 05/30/17 07:12 Alkaline Phosphatase 67 U/L (38-126) 05/30/17 07:12 Total Protein 6.5 g/dL (6.3-8.3) 05/30/17 07:12 Albumin 3.6 g/dL (3.5-5.0) 05/30/17 07:12 Globulin 2.9 gm/dL (2.2-3.9) 05/30/17 07:12 Albumin/Globulin Ratio 1.2 (1.0-2.1) 05/30/17 07:12 Urine Color Yellow (YELLOW) 05/29/17 11:12 Urine Clarity Hazy (Clear) 05/29/17 11:12 Urine pH 5.0 (5.0-8.0) 05/29/17 11:12 Ur Specific Mercer 1.018 (1.003-1.030) 05/29/17 11:12 Urine Protein 1+ mg/dL (NEGATIVE) H 05/29/17 11:12 Urine Glucose (UA) Normal mg/dL (Normal) 05/29/17 11:12 Urine Ketones Trace mg/dL (NEGATIVE) 05/29/17 11:12 Urine Blood Negative (NEGATIVE) 05/29/17 11:12 Urine Nitrate Negative (NEGATIVE) 05/29/17 11:12 Urine Bilirubin Negative (NEGATIVE) 05/29/17 11:12 Urine Urobilinogen 2.0 mg/dL (0.2-1.0) 05/29/17 11:12 Ur Leukocyte Esterase Neg Dbera/uL (Negative) 05/29/17 11:12 Urine WBC (Auto) 2 /hpf (0-5) 05/29/17 11:12 Urine RBC (Auto) 1 /hpf (0-3) 05/29/17 11:12 Ur Squamous Epith Cells 4 /hpf (0-5) 05/29/17 11:12 Urine Opiates Screen Positive (NEGATIVE) H 05/29/17 11:12 Urine Methadone Screen Negative (NEGATIVE) 05/29/17 11:12 Ur Barbiturates Screen Negative (NEGATIVE) 05/29/17 11:12 Ur Phencyclidine Scrn Negative (NEGATIVE) 05/29/17 11:12 Ur Amphetamines Screen Negative (NEGATIVE) 05/29/17 11:12 U Benzodiazepines Scrn Positive (NEGATIVE) 05/29/17 11:12 U Oth Cocaine Metabols Negative (NEGATIVE) 05/29/17 11:12 U Cannabinoids Screen Negative (NEGATIVE) 05/29/17 11:12 Alcohol, Quantitative < 10 mg/dl (0-10) 05/29/17 10:52 Hepatitis A IgM Ab Negative (NEGATIVE) 05/29/17 14:41 Hep Bs Antigen Negative (NEGATIVE) 05/29/17 14:41 Hep B Core IgM Ab Negative (NEGATIVE) 05/29/17 14:41 Hepatitis C Antibody Reactive (NEGATIVE) 05/29/17 14:41 HIV 1&2 Antibody Screen Negative (NEGATIVE) 05/29/17 17:30 Attending/Attestation - Attestation I have personally seen and examined this patient.: Yes I have fully participated in the care of the patient.: Yes I have reviewed all pertinent clinical information, including history, physical exam and plan: Yes Notes (Text): 05/31/17 15:15 Patient left AMA overnight night/morning Aj Gaviria
[2017-05-31] MEDS ORDERED: Aluminum Hydroxide/Magnesium Hydroxide Susp (30 mL) PO PRN (10:22)
--- NOTE | 2017-05-31 15:17 | CARD ---
APPROVED REPORT EKG Measurement Heart [id number] <Conclusion> Normal sinus rhythm Minimal voltage criteria for LVH, may be normal variant Borderline ECG
== END 2017-05-30 20:31 | disposition left against medical advice (07) | DRG 743 ==
LOC: C.ER 09:19 → C.9E 13:06 → C.3T 18:19 → C.9E 18:20 → C.3T 19:02
PROVIDERS: ADMIT Hospitalist; ATTEND Hospitalist
DX: F11.23 Opioid dependence with withdrawal (principal); F20.9 Schizophrenia, unspecified; F17.210 Nicotine dependence, cigarettes, uncomplicated; F10.239 Alcohol dependence with withdrawal, unspecified; I10 Essential (primary) hypertension; Z59.0 Homelessness; Z91.14 Patient's other noncompliance with medication regimen

== ENCOUNTER 2017-10-02 10:04 | Emergency (ER) | payer OTHER ==
[2017-10-02 10:14] VITALS: TEMP 98.9
[2017-10-02 10:48] VITALS: BP 216/112
[2017-10-02 11:30] VITALS: PULSE 78; RESP 16; O2SAT 99
--- NOTE | 2017-10-02 13:56 | C.PDOC ---
History Of Present Illness 57-year-old male, presents to the emergency department requesting detox from alcohol and heroin. Patient denies any nausea/vomiting, SI/HI. Last use was this morning. Pt blood pressure noted to be high in triage. Denies any headache , dizziness, chest pain, shortness of breath, numbness/weakness or any other associated symptoms. No other complaints at this time. Chief Complaint (Nursing): Substance Abuse History Per: Patient History/Exam Limitations: no limitations Current Symptoms Are (Timing): Still Present Past Medical History Reviewed: Historical Data, Nursing Documentation, Vital Signs Vital Signs: Last Vital Signs Temp 98.9 F 10/02/17 10:13 Pulse 78 10/02/17 10:44 Resp 16 10/02/17 10:44 BP 216/112 H 10/02/17 10:44 Pulse Ox 99 10/02/17 14:12 - Medical History PMH: HTN Family History: States: No Known Family Hx - Social History Hx Alcohol Use: Yes (rum about 2 pints/ day, 16 oz cans also/ day) Hx Substance Use: Yes (heroin, 9-10 bags/ day) - Immunization History Hx Tetanus Toxoid Vaccination: No Hx Influenza Vaccination: No Hx Pneumococcal Vaccination: No Review Of Systems Constitutional: Negative for: Fever, Chills Cardiovascular: Negative for: Chest Pain, Palpitations Respiratory: Negative for: Shortness of Breath Gastrointestinal: Negative for: Nausea, Vomiting Musculoskeletal: Negative for: Back Pain Neurological: Negative for: Weakness, Numbness, Headache, Dizziness Psych: Negative for: Suicidal ideation, Withdrawal Physical Exam - Physical Exam Appears: Non-toxic, No Acute Distress Skin: Normal Color, Warm, Dry, No Rash Head: Atraumatic, Normacephalic Eye(s): bilateral: Normal Inspection, PERRL, EOMI Nose: Normal Oral Mucosa: Moist Lips: Normal Appearing Neck: Normal ROM Cardiovascular: Rhythm Regular, No Murmur Respiratory: Normal Breath Sounds, No Accessory Muscle Use Gastrointestinal/Abdominal: Soft, No Tenderness Back: Normal Inspection Extremity: Normal ROM Neurological/Psych: Oriented x3, Normal Speech ED Course And Treatment O2 Sat by Pulse Oximetry: 99 (RA) Pulse Ox Interpretation: Normal Progress Note: Pt is refusing all bloodwork and treatment for symptoms. Medical Decision Making Medical Decision Making: Leaving Against Medical Advice (AMA): This patient is choosing to leave against medical advice. I have personally explained to the pt that choosing to do so may result in permanent bodily harm or . I have discussed at great length that without further evaluation and monitoring there may be unforeseen circumstances and/or deterioration causing permanent bodily harm or as a result of their choice. The pt verbalized these risks back to the physician in laymans terms. The pt is alert, oriented, and shows the mental capacity to make clear decisions regarding the pts health care at this time. The pt continues to wish to leave against medical advice. In light of the pts decision to leave AMA, follow-up has been arranged and the pt is aware of the importance of following up as instructed. The pt has been advised that they should return to the ED immediately if they change their mind at any time, or if their condition begins to change or worsen in any way. Disposition - Disposition Referrals: [facility] [Outside] [facility] [Outside] Disposition: AGAINST MEDICAL ADVICE Disposition Time: 11:15 Condition: UNKNOWN Additional Instructions: JUNIOR Alanna LEYVA, thank you for letting us take care of you today. Your provider was Simón Del Toro DO. The emergency medical care you received today was directed at your acute symptoms. If you were prescribed any medication, please fill it and take as directed. It may take several days for your symptoms to resolve. Return to the Emergency Department if your symptoms worsen, do not improve, or if you have any other problems. Please contact your doctor or call one of the physicians/clinics you have been referred to that are listed on the Patient Visit Information form that is included in your discharge packet. Bring any paperwork you were given at discharge with you along with any medications you are taking to your follow up visit. Our treatment cannot replace ongoing medical care by a primary care provider outside of the emergency department. [facility]. YOU SIGNED OUT AGAINST MEDICAL ADVICE. TAKE THE MEDICATION DAILY FOR YOUR BLOOD PRESSURE. FOLLOW UP WITH THE CLINIC IN 1-2 DAYS FOR RE-EVALUATION OF YOUR BLOOD PRESSURE. Prescriptions: cloNIDine [Catapres] 0.2 mg PO DAILY #7 tab Instructions: High Blood Pressure in Adults, Polysubstance Abuse (DC) Forms: [employer] (Luxembourgish) - Clinical Impression Clinical Impression: Drug dependence, Hypertension - Scribe Statement The provider has reviewed the documentation as recorded by the Scribe (Clementine Anthony) All medical record entries made by the Scribe were at my direction and personally dictated by me. I have reviewed the chart and agree that the record accurately reflects my personal performance of the history, physical exam, medical decision making, and the department course for this patient. I have also personally directed, reviewed, and agree with the discharge instructions and disposition.
== END 2017-10-02 11:19 | disposition left against medical advice (07) ==
LOC: C.ER 10:04
DX: F19.20 Other psychoactive substance dependence, uncomplicated (principal); I10 Essential (primary) hypertension